=== PATIENT | male | born 2005 | race Caucasian/White ===

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

== ENCOUNTER 2024-10-05 07:58 | Outpatient (CLI) | payer BC, SELFPAY | END 2024-10-05 07:59 | disposition home or self-care (01) | LOC: NFLDREF 10-08 13:22 | PROVIDERS: PCP Family Medicine; Referring Provider Family Medicine; Visit Provider Registered Nurse | DX: Z13.6 Encounter for screening for cardiovascular disorders (principal); Z13.29 Encounter for screening for other suspected endocrine disorder; Z13.9 Encounter for screening, unspecified | CPT/HCPCS: 80053; 80061; 84403; 84439; 84443 ==